=== PATIENT | male | born 1990 | race Caucasian/White ===

== ENCOUNTER → 2016-10-15 | Outpatient (REF) | payer BC ==
[2016-10-15 19:22] LABS: ALBUMIN 4.3 GM/DL (3.2-5.2); ALBUMIN/GLOBULIN RATIO 1.16 (1.00-1.93); ALKALINE PHOSPHATASE 56 U/L (45-117); ALT/SGPT 66 U/L (12-78); ANION GAP 8 MEQ/L (8-16); AST/SGOT 28 U/L (15-37); BILIRUBIN,TOTAL 0.4 MG/DL (0.2-1.0); BLOOD UREA NITROGEN 15 MG/DL (7-18); CALCIUM LEVEL 9.3 MG/DL (8.5-10.1); CARBON DIOXIDE LEVEL 27 MEQ/L (21-32); CHLORIDE LEVEL 106 MEQ/L (98-107); CREATININE FOR GFR 0.88 MG/DL (0.70-1.30); GLOMERULAR FILTRATION RATE > 60.0 (>60); GLUCOSE, FASTING 94 MG/DL (70-105); SODIUM LEVEL 141 MEQ/L (136-145)
[2016-10-15 20:06] LABS: MEAN CORPUSCULAR HEMOGLOBIN 28.5 pg (27.0-33.0); MEAN CORPUSCULAR VOLUME 88.9 fl (80.0-96.0); RED CELL DISTRIBUTION WIDTH 12.6 % (11.5-14.5)
== END ==
LOC: M SFHCLERA 10:34
PROVIDERS: ATTEND Family Medicine
DX: K21.9 Gastro-esophageal reflux disease without esophagitis (principal); F90.0 Attention-deficit hyperactivity disorder, predominantly inattentive type

== ENCOUNTER → 2017-06-15 | Outpatient (REF) | payer BC ==
[2017-06-15 18:31] LABS: BASO % 0.5 % (0.0-1.0); EOS # 0.1 10^3/uL (0.0-0.50); EOS % 1.4 % (0.0-3.0); HEMOGLOBIN 13.6 g/dl (14.0-18.0); IMMATURE GRANULOCYTE % 0.2 % (0-3.0); LYMPH # 1.3 10^3/uL (1.5-6.5); LYMPH % 29.4 % (24.0-44.0); MEAN CORPUSCULAR HEMOGLOBIN 28.2 pg (27.0-33.0); MEAN CORPUSCULAR HGB CONC 32.4 g/dl (32.0-36.5); MEAN CORPUSCULAR VOLUME 87.1 fl (80.0-96.0); MONO # 0.4 10^3/uL (0.0-0.8); MONO % 8.7 % (0.0-5.0); NEUTROPHILS # 2.6 10^3/uL (1.8-7.7); NEUTROPHILS % 59.8 % (36.0-66.0); PLATELET COUNT, AUTOMATED 314 10^3/uL (150-450); RED BLOOD COUNT 4.82 10^6/uL (4.30-6.10); RED CELL DISTRIBUTION WIDTH 12.5 % (11.5-14.5); WHITE BLOOD COUNT 4.4 10^3/uL (4.0-10.0)
[2017-06-15 18:59] LABS: FERRITIN 116 NG/ML (26-388); IRON (FE) 107 UG/DL (65-175); PERCENT SATURATION 30.9 % (19.7-50.0); TOTAL IRON BINDING CAPACITY 346 UG/DL (250-450)
[2017-06-15 18:59] LABS: MAGNESIUM LEVEL 2.1 MG/DL (1.8-2.4)
== END ==
LOC: M SFHCLERA 12:50
DX: D64.9 Anemia, unspecified (principal); K21.0 Gastro-esophageal reflux disease with esophagitis
CPT/HCPCS: 83550

== ENCOUNTER → 2020-03-28 | Outpatient (CLI) | payer BC ==
[~2020-03-28] MED LIST: CHOL400T8 PO; NEXI20CA33 PO; TUMS500C PO; VITA-172 PO; VITMTA PO
[2020-03-28 14:08] LABS: BASO % 0.2 % (0.0-1.0); EOS # 0.1 10^3/uL (0.0-0.5); EOS % 0.5 % (0.0-3.0); HEMATOCRIT 41.4 % (42.0-52.0); HEMOGLOBIN 13.1 g/dl (13.5-17.5); LYMPH # 0.4 10^3/uL (1.5-5.0); LYMPH % 4.7 % (24.0-44.0); MEAN CORPUSCULAR HEMOGLOBIN 27.4 pg (27.0-33.0); MEAN CORPUSCULAR HGB CONC 31.6 g/dl (32.0-36.5); MEAN CORPUSCULAR VOLUME 86.6 fl (80.0-96.0); MONO # 0.7 10^3/uL (0.0-0.8); MONO % 7.3 % (0.0-5.0); NEUTROPHILS # 8.2 10^3/uL (1.5-8.5); NEUTROPHILS % 86.9 % (36.0-66.0); PLATELET COUNT, AUTOMATED 404 10^3/uL (150-450); RED BLOOD COUNT 4.78 10^6/uL (4.30-6.10); WHITE BLOOD COUNT 9.4 10^3/uL (4.0-10.0)
[2020-03-28 14:42] LABS: ALT/SGPT 38 U/L (12-78); BILIRUBIN,TOTAL 0.5 MG/DL (0.2-1.0); BLOOD UREA NITROGEN 19 MG/DL (7-18); CALCIUM LEVEL 9.9 MG/DL (8.5-10.1); CARBON DIOXIDE LEVEL 28 MEQ/L (21-32); CHLORIDE LEVEL 105 MEQ/L (98-107); CREATININE FOR GFR 0.95 MG/DL (0.70-1.30); GLOMERULAR FILTRATION RATE > 60.0 (>60); GLUCOSE, FASTING 116 MG/DL (70-100); LDH LACTATE DEHYDROGENASE 727 U/L (87-241); SODIUM LEVEL 138 MEQ/L (136-145); TOTAL PROTEIN 8.5 GM/DL (6.4-8.2)
[2020-03-30 14:10] LABS: ACETYLCHOLINE RCPTOR BINDING A 0.12 nmol/L (0.00-0.24); HCG SERUM TUMOR MARKER QUANT < 1 mIU/mL (0-3)
== END ==
LOC: M LAB 12:59
PROVIDERS: ATTEND Family Medicine
DX: J98.59 Other diseases of mediastinum, not elsewhere classified (principal)

== ENCOUNTER 2020-03-29 11:02 | Inpatient (IN) | payer BC ==
[~2020-03-29] VITALS: Ht 177.8 cm; Wt 79.5 kg
[2020-03-29] MEDS ORDERED: PERCOCET 5MG/325MG TAB PO PRN ×2 (11:15)
[2020-03-29] MEDS ORDERED: NORCO, ANEXSIA 5/325MG TABLET (HYDROcodone/ACETAMINOPHEN) PO PRN (11:15)
[2020-03-29] MEDS ORDERED: ACETAMINOPHEN TAB 650MG DOSE (2X325MG) PO PRN (11:15)
[2020-03-29] MEDS ORDERED: BISACODYL 10 MG SUPP PR PRN (11:15)
[2020-03-29] MEDS ORDERED: ONDANSETRON 4MG/2ML VIAL IV PRN (11:15)
[2020-03-29] MEDS ORDERED: LEVALBUTEROL 1.25 MG/0.5 ML CONCENTRATE NEB NEB PRN (11:15)
[2020-03-29] MEDS ORDERED: TUMS500C PO (13:33)
[2020-03-29] MEDS ORDERED: CHOL400T8 PO (13:33)
[2020-03-29] MEDS ORDERED: VITMTA PO (13:33)
[2020-03-29] MEDS ORDERED: VITA-172 PO (13:33)
[2020-03-29] MEDS ORDERED: NEXI20CA33 PO ×2 (13:33)
[2020-03-29] MEDS: LEVALBUTEROL 1.25 MG/0.5 ML CONCENTRATE NEB NEB SCH ×2 (14:00→19:58)
[2020-03-29] MEDS ORDERED: SODIUM BICARBONATE 8.4% INJ 50MEQ 50 ML VIAL As Ordered ONE (14:09)
[2020-03-29] MEDS ORDERED: LIDOCAINE 1% MDV 20ML VIAL As Ordered ONE (14:09)
[2020-03-29 14:33] LABS: INR 1.05; PROTHROMBIN TIME 13.9 SECONDS (12.5-14.3)
[2020-03-29] MEDS ORDERED: KETOROLAC 30 MG/ML 1ML VIAL As Ordered ONE (15:10)
[2020-03-29] MEDS: KETOROLAC 30 MG/ML 1ML VIAL IV SCH ×2 (15:12→21:47)
[2020-03-29 15:45] VITALS: BP 158/83
[2020-03-29] MEDS: KCL 20MEQ IN D5/NS 1000ML 1,000 ML IV SCH (16:54)
--- NOTE | 2020-03-29 17:08 | REP ---
INDICATION: meidastinal mass. COMPARISON: None. TECHNIQUE: The procedure is performed by Angi Campos [facility], under the direct supervision of Dr. Bass. The risks and benefits of the procedure were explained to the patient and informed consent was obtained both orally and written. Directly prior to the start of the procedure, a formal timeout was done in the exam room. The right mediastinal mass was localized using CT guidance. Skin was prepped and draped in the usual sterile fashion. Eight ml of 1% lidocaine 10 mg/ml was used as a local anesthetic. FINDINGS: Using CT guidance a 19/20 gauge coaxial needle biopsy system was inserted and advanced into the right mediastinal mass. Ten core biopsy samples were obtained and sent to the lab. CT images obtained directly after the biopsy show no evidence of pneumothorax or hematoma. The patient was then discharged back to the floor. IMPRESSION: CT-guided right mediastinal mass biopsy. <Electronically signed by Angi Campos > 03/29/20 [id number] <Electronically signed by Dwayne Bass > 03/29/20 [id number]
[2020-03-29] MEDS: PANTOPRAZOLE 40MG TAB (PROTONIX) PO SCH (17:37)
[2020-03-29 20:00] VITALS: BP 128/79
[2020-03-29] MEDS: DOCUSATE SODIUM 100MG CAPSULE PO SCH (21:00)
[2020-03-29] MEDS ORDERED: CALCIUM CARBONATE 500 MG CHEW U/D PO PRN (21:00)
[2020-03-29] MEDS: HEPARIN SOD (PORCINE) 5000UNITS/ML 1ML VIAL/SYRINGE SC SCH (21:47)
[2020-03-30] VITALS: BP 135/67
[2020-03-30] MEDS: LEVALBUTEROL 1.25 MG/0.5 ML CONCENTRATE NEB NEB SCH ×2 (02:00→07:27)
[2020-03-30] MEDS: KETOROLAC 30 MG/ML 1ML VIAL IV SCH ×2 (03:00→09:00)
[2020-03-30 04:00] VITALS: BP 136/72
[2020-03-30 06:08] LABS: BASO % 0.7 % (0.0-1.0); EOS # 0.2 10^3/uL (0.0-0.5); EOS % 3.8 % (0.0-3.0); HEMATOCRIT 36.9 % (42.0-52.0); HEMOGLOBIN 11.6 g/dl (13.5-17.5); LYMPH # 0.5 10^3/uL (1.5-5.0); LYMPH % 9.5 % (24.0-44.0); MEAN CORPUSCULAR HEMOGLOBIN 27.4 pg (27.0-33.0); MEAN CORPUSCULAR HGB CONC 31.4 g/dl (32.0-36.5); MEAN CORPUSCULAR VOLUME 87.2 fl (80.0-96.0); MONO # 0.8 10^3/uL (0.0-0.8); NEUTROPHILS % 71.1 % (36.0-66.0); PLATELET COUNT, AUTOMATED 355 10^3/uL (150-450); RED BLOOD COUNT 4.23 10^6/uL (4.30-6.10); WHITE BLOOD COUNT 5.6 10^3/uL (4.0-10.0)
[2020-03-30 06:21] LABS: BLOOD UREA NITROGEN 17 MG/DL (7-18); CALCIUM LEVEL 9.2 MG/DL (8.5-10.1); CARBON DIOXIDE LEVEL 26 MEQ/L (21-32); CHLORIDE LEVEL 108 MEQ/L (98-107); CREATININE FOR GFR 0.94 MG/DL (0.70-1.30); GLOMERULAR FILTRATION RATE > 60.0 (>60); GLUCOSE, FASTING 98 MG/DL (70-100); POTASSIUM SERUM 4.2 MEQ/L (3.5-5.1); SODIUM LEVEL 139 MEQ/L (136-145)
[2020-03-30] MEDS: KCL 20MEQ IN D5/NS 1000ML 1,000 ML IV SCH (06:23)
[2020-03-30 06:32] LABS: ABG BASE EXCESS -0.9 (-2.0-2.0); ABG HCO3 22.5 MEQ/L (22.0-26.0); ABG O2 SATURATION 97.8 % (95.0-99.0); ABG PARTIAL PRESSURE CO2 33.4 mmHg (35.0-45.0); ABG PARTIAL PRESSURE O2 98.3 mmHg (75.0-100.0); ABG STANDARD HCO3 23.7 MEQ/L (22.0-26.0); ABG TOTAL CO2 23.6 MEQ/L (22.0-29.0); ABG pH (ARTERIAL) 7.447 UNITS (7.350-7.450)
[2020-03-30 08:00] VITALS: BP 141/71
--- NOTE | 2020-03-30 08:50 | REP ---
INDICATION: mediastinal mass. COMPARISON: Chest CT dated 03/28/[address]-guided needle biopsy of a large mediastinal mass on 03/29/2020. TECHNIQUE: Upright PA and lateral chest. FINDINGS: The patient's known large mediastinal mass projects to the right and obscures the right paratracheal and right cardiac margin areas. There is no pneumothorax or pleural fluid collection. The lung toth are otherwise clear. Cardiac size is normal. The right hilus is obscured by the mediastinal mass. Left hilus is unremarkable. Skeletal structures unremarkable. IMPRESSION: Large mediastinal mass. No pneumothorax or pleural fluid collection. <Electronically signed by Ananda Whelan > 03/30/20 [id number]
[2020-03-30] MEDS: DOCUSATE SODIUM 100MG CAPSULE PO SCH (08:59)
[2020-03-30] MEDS ORDERED: MOM 30ML SUSPENSION UDC PO SCH (09:00)
[2020-03-30] MEDS: PANTOPRAZOLE 40MG TAB (PROTONIX) PO SCH (09:01)
[2020-03-30] MEDS: HEPARIN SOD (PORCINE) 5000UNITS/ML 1ML VIAL/SYRINGE SC SCH (09:01)
--- NOTE | 2020-03-30 11:49 | HPE ---
HISTORY AND PHYSICAL DATE OF ADMISSION: 03/29/2020 Patient is seen at the request of Dr. Dc Miguel of the primary care service for mediastinal mass accompanied by chest pain. HISTORY OF PRESENT ILLNESS: The patient is a 29-year-old white male whose story starts around last November when he started to develop back pain on the right side. This progressed to pain in the anterior chest. The back pain was originally very sharp and knife-like whereas the anterior chest pain on the right side was more dull and aching. It did not hurt him to take a deep breath. He felt as if he was short of breath secondary to pain but not intrinsically short of breath. He has had a slight cough without sputum production for the last two weeks. He does report off and on, fevers, chills, and sweats, particularly night sweats. He has had shaking chills off and on. There is no dysphagia and he thinks he has maintained his weight although his appetite has decreased over the last few days secondary to anxiety. He has been to Urgent Care a number of times and no imaging has been undertaken. He has noticed over the last three years an increase in the size of his right breast. There has been no hair loss. He denies swelling of his upper extremities or his head. He denies changes in colors of his upper extremities or his head. PAST MEDICAL HISTORY: 1. Prior attention deficit hyperactivity disorder. Previously on medication but no longer. 2. Gastroesophageal reflux disease, on Nexium. PAST SURGICAL HISTORY: None. CURRENT MEDICATIONS: 1. Nexium 20 mg q. day. TRAVEL HISTORY: He has been to the [facility], [place] and to [place], [place] along with travel [place] [facility]. EXPOSURES: He has a cat and now lives with his parents with dogs, Pomeranians. No birds. No prior exposure to tuberculosis. 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 There has been no travel in the past six months secondary to the COVID pandemic. HABITS: Used to smoke maybe less than a half a pack of cigarettes when he was in college for two years. He used to smoke occasional marijuana also in college. He drinks about three to six beers a week. FAMILY HISTORY: Mother has hemangiomas of her liver. REVIEW OF SYSTEMS: Constitutional: See HPI. Eyes: Status post Lasik surgery without diplopia or amaurosis fugax, without prior jaundice. Nose: Has occasional epistaxis when blowing his nose. Mouth: He has his own teeth. Respiratory: See HPI. Cardiac: See HPI. Has noted tachycardias and palpitations over the last two weeks. No orthopnea. No paroxysmal nocturnal dyspnea. No peripheral edema. No anginal chest pain. GI: With some nausea, no vomiting over the last couple of days. Without constipation, had a bout of diarrhea yesterday. No melena. No hematochezia or hematemesis. No abdominal pain. : Without dysuria or hematuria, without testicular masses. Hematological: Without prolonged bleeding times. Endocrine without diabetes, without thyroid disease. Neurologic: Without paresthesias or paralyses or prior seizures. PHYSICAL EXAMINATION: VITAL SIGNS: In the office, his blood pressure of 140/70, a pulse of 108 with a regular rate and rhythm. He was 98% saturated on room air with a respiratory rate of 16 without use of accessory muscles. Temperature is pending, will be taken in the hospital upon admission. GENERAL: Well-developed, well-nourished white male, quite anxious. HEENT: Head is normocephalic. Eyes: Pupils equal, round and reactive to light. Extraocular motions intact. Sclera nonicteric. Nose without deformity. Mouth shows the mucous membranes to be pink and moist. Lips and gums with no lesions. Teeth are in good repair. There is no thrush. NECK: Neck is supple. There is no jugular venous distention. No subcutaneous emphysema. Trachea is midline. There is no lymphadenopathy or thyromegaly. He has 2+ carotids without bruits. LUNGS: Normal vesicular sounds without wheezes, rhonchi or rales. Percussion is full to the diaphragm. CARDIAC: Tachycardia without murmurs, clicks, gallops or rubs. I cannot feel his PMI. S1 and S2 are normal. BREASTS: His right breast is swollen but nontender secondary to what is thought to be gynecomastia. ABDOMEN: Soft and nontender. Bowel sounds are positive. There is no hepatomegaly. No CVA tenderness. There are no abdominal masses. EXTREMITIES: No pretibial edema. No calf tenderness. No differential swelling of the upper extremities. SKIN: Warm, dry and perfused without cyanosis or mottling including the nailbeds and knees. : Testicular exam showed no testicular masses. NEUROLOGIC: Cranial nerves II-XII intact. Gross motor intact, gross sensory intact. Gait is also intact. PSYCHIATRIC: He was awake and alert, oriented x3 with appropriate mood and affect, and conversational. INVESTIGATIONS: His white count yesterday was 9.4 with a hemoglobin and hematocrit of 13.1 and 41.4 respectively. Platelet count was 404,000. Differential shows 86% neutrophils, 4% lymphocytes, 7% monocytes. There were no immature forms or toxic granulations. Chemistries showed normal electrolytes with BUN and creatinine of 19 and 0.95, glucose of 116, calcium 9.9. LDH is 727 with an albumin of 4.0. His AFP tumor marker is 7.1 which is within normal limits. HCG is pending. His mono screen was negative. His chest CT done at [facility] on 03/28/2020 shows a large mediastinal mass compressing the vena cava but not occluding it. There is also some compression of the right main pulmonary artery. It is a heterogenous mass and measures at least 14 cm x 8.6 cm and extends down the side of the right atrium outside the pericardium past the hilum and extends up to the base of the neck and even slightly into the neck. There are subcutaneous veins that are filling abnormally particularly on the right side over the anterior chest wall. There is gynecomastia on the right side. The mass itself is heterogenous showing what is probably a necrotic center. The adrenals have a normal configuration. There is a lucency which fills with contrast in the right posterior lobe of the liver which is thought to represent a hemangioma. Pancreas had a normal configuration. I do not see periaortic lymphadenopathy. IMPRESSION: 1. Large anterior mediastinal mass possibly: a. Lymphoma. b. Thymoma. c. Germ cell tumor, testicular. PLAN/DISCUSSION: It is imperative that we establish a diagnosis immediately. I have arranged for him to be seen by Radiology and undergo a CT guided biopsy today with the processing of the tissue tomorrow. While his subcutaneous veins are opacified on the right on the anterior chest on CT, he does not have clinical superior vena cava syndrome at this point in time. I do not see those veins on physical examination. Considering that he has a fever, sweats and night sweats, this sounds like it is going to be a B-cell lymphoma. It certainly can always represent a thymoma. As soon as we establish a diagnosis, we can plan for further treatment. He had expressed a wish to go to [facility] and I have indicated to him that if this turns out to be a thymoma I will definitely refer them to [facility]. I do not think this is going to be and we could certainly and prudently start chemotherapy here. I will also involve radiation therapy. I think that we have a limited window luxury of time to establish this diagnosis before having to undertake emergent radiation therapy. Will have him seen by Oncology most likely tomorrow.
--- NOTE | 2020-03-30 11:49 | DSES ---
DISCHARGE SUMMARY DATE OF ADMISSION: 03/29/2020 DATE OF DISCHARGE: 03/30/2020 DISCHARGE DIAGNOSES: 1. 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 2. Impending superior vena cava (SVC) syndrome. 3. Gastroesophageal reflux disease. HOSPITAL COURSE: The patient is a 29-year-old white male whose story starts around November when he started to experience back pain. This progressed to anterior right-sided chest pain. He had been seen by an urgent care at least twice and was told that it was a muscle sprain and to do stretching exercises. He was finally seen by family physician, Dr. Miguel, in [facility] who obtained a chest x-ray that showed a very large mediastinal mass. Threshold EPA's symptomatology included fevers, chills, and night sweats. He has maintained his weight. He does not complain of shortness of breath, and he had not noticed that his head or arms had swelling. His chest CT confirmed a very large anterior mediastinal mass, which was beginning to flatten and pancaking the superior vena cava at its junction with the right atrium. He underwent a needle biopsy yesterday in radiology and preliminary results show this to be most likely a lymphoma. Flow cytometry is being undertaken as are special markers. DISCHARGE DISPOSITION: I made arrangements for him to see Dr. Medley at the [facility] this morning at 10:30. While we cannot start treatment at this point in time as we do not have a definitive diagnosis, at least the [facility] will be able to give him a broad outline of possibility. The family is also talking about going to [facility] and those arrangements can be made between the [facility] and [facility]. I will not need to see him in follow-up. DISCHARGE MEDICATIONS: He is being discharged on his home medications, which include: - Nexium 20 mg once daily - ibuprofen or Aleve as needed for pain - vitamin B12 at 500 mg once daily - cholecalciferol 10 mg chew 800 units once daily - multivitamins one once daily - Tums 200 mg chew p.r.n. indigestion I have indicated to him that should he become short of breath or should his hands or head start to swell, he is to immediately give us a call and we may have to do emergent radiation therapy for impending superior vena cava (SVC) syndrome.
== END 2020-03-30 10:09 | disposition home or self-care (01) | DRG 691 ==
LOC: M PCU 13:08
PROVIDERS: ADMIT Thoracic Surgery (Cardiothoracic Vascular Surgery); ATTEND Thoracic Surgery (Cardiothoracic Vascular Surgery)
PROC: 0WBC3ZX Excision of Mediastinum, Percutaneous Approach, Diagnostic (ICD-10-PCS; principal; 2020-03-29 12:00)
DX: C83.32 Diffuse large B-cell lymphoma, intrathoracic lymph nodes (principal); I87.1 Compression of vein; K21.9 Gastro-esophageal reflux disease without esophagitis; Z87.891 Personal history of nicotine dependence; Z79.899 Other long term (current) drug therapy; Z20.828 Contact with and (suspected) exposure to other viral communicable diseases

== ENCOUNTER → 2020-03-30 | Outpatient (CLI) | payer BC ==
--- NOTE | 2020-03-30 14:58 | RADONC.CN ---
Radiation Oncology Hx/Consult Radiation Oncology Consult Date of Service: Mar 30, 2020 Pt Identifier Jhony Pandey is a 29 year old male with an unremarkable past medical history who presents today for urgent consultation for a 4 month history of mid-thoracic back pain, periodic fevers and occasional night sweats. He underwent a chest x- ray which revealed a large mediastinal mass. Chest CT on 03/28/20 showed an approximately 14 x 9 x 13 cm heterogenously enhancing anterior mediastinal mass, displacing posteriorly, but not fully occluding or invading the SVC. CT abdomen and pelvis revealed no infradiaphragmatic lesion of oncologic concern. The mediastinal mass was biopsied percutaneously yesterday, 03/29/20 and pathology is pending. He is here for a discussion of the workup to date and next steps. Diagnosis/Treatment History Oncologic History As described above Recent labs of note: 03/30/20 Cr 0.96 Hgb 12 LD 567 AFP 7.1 03/29/20 Pathology pending Interval History He notes ongoing anterior chest pain and back pain. The pain in the back started in November. It is stabbing in quality. The pain in the chest is dull and not associated with respirations. He has been having periodic fevers and chills over this time period. Does also endorse 1-2 episodes of drenching night sweats as well. His appetite and weight are preserved. He does feel fatigue. He does not note pain with alcoholic beverage consumption. He feels his voice is of normal quality. He has no complaints of swelling in the hands or face or abdominal pain. He does not have any MCMILLAN or SOB. 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 He is engaged. He has no personal oncologic history. His mom asked about the presence of hemangioma on his CT abdomen (he does have one in segment 6). Past Medical History: GERD Past Surgical History: None Family History: No family hisotry of cancer Social History: Former 1/2 ppd smoker for 1-2 years Drinks 4 beers per week Allergies / Meds Allergies: Coded Allergies: No Known Allergies (Verified Allergy, Unknown, 03/29/20) Home Meds Reported Medications Cyanocobalamin (Vitamin B-12) (Vitamin B-12) 500 Mcg Tablet, 500 MCG PO DAILY, TAB 03/29/20 Cholecalciferol (Vitamin D3) (Vitamin D3) 10 Mcg Tab.chew, 800 UNITS PO DAILY 03/29/20 Multivitamins (Thera M Plus Tablet) 1 Each Tablet, 1 TAB PO DAILY, TAB 03/29/20 Calcium Carbonate (Tums) 200 Mg Tab.chew, 1000 MG PO PRN for INDIGESTION, CHW 03/29/20 Esomeprazole Magnesium (Nexium 24Hr) 20 Mg Capsule.dr, 10 MG PO QHS, CAP 03/29/20 Review of Systems Constitutional: Reports: Chills, Fever, Night Sweats, Fatigue, Normal appetite; Denies: Weight Loss Eyes: Denies: Pain, Vision change HEENT: Denies: Head Aches Skin: Denies: Rash Pulmonary: Denies: Dyspnea, Cough Cardiovascular: Reports: Chest Pain; Denies: Palpitations, Edema, Lt Headedness Breast: Reports: New Breast Lumps / Masses (Right breast lump present for past year) Gastrointestinal: Denies: Nausea, Vomiting, Abdominal Pain, Diarrhea Genitourinary: Denies: Dysuria, Frequency, Incontinence Hematologic: Denies: Bruising, Petecchia, Enlarged Lymph Nodes Musculoskeletal: Reports: Back pain; Denies: Neck pain, Leg pain Neurological: Denies: Weakness, Numbness, Incoordination Psych: Reports: Mood Normal; Denies: Memory Issues, Thoughts of Self Harm Vital Signs Ht 69" Wt 175 lb T 96.2 P 97 RR 18 BP 132/80 O2 98% General Exam: Positive: Alert, Cooperative, No Acute Distress Eye Exam: Positive: PERRLA, EOMI ENT EXAM: Positive: Atraumatic, Pharynx Normal (No tonsilar masses, normal appearing soft palate and oral mucosa), Other ENT (No facial plethora, or edema. Phonation normal. No neck vein distension/JVD) Neck Exam: Positive: Supple; Negative: Thyromegaly, Lymphadenopathy Chest Exam: Positive: Clear to auscultation, Normal air movement; Negative: Rales, Rhonchi, Wheezing, Diminished Heart Exam: Positive: Rate Normal, Regular Rhythm Breast Exam: Negative: Symmetric Bilaterally (There is a palpable breast bud/gynecomastia on the right>left), Skin Changes Abdomen Exam: Positive: Normal bowel sounds, Soft; Negative: Tenderness, Hepatospenomegaly Extremity Exam: Negative: Edema Skin Exam: Positive: Nl turgor and temperature Neuro Exam: Positive: Normal Gait, Normal Speech, Normal Tone, Cranial Nerves 3-12 NL Psych Exam: Positive: Mental status NL Other Physical Findings Lymphatic exam: Waldeyer's ring WNL on oral exam. No cervical, supra/infraclavicular, axillary, epitrochlear, abdominal, inguinal or popliteal adenopathy palpated. Diagnostic and Laboratory Diagnostic Review Radiologic images, relevant labs and pathology reports were personally reviewed and discussed with Mr. Pandey. Assessment and Plan Impression Mr. Pandey is a 29 year old male with unremarkable past medical history who presents today for urgent consultation for a 4 month history of mid-thoracic back pain, periodic fevers and occasional night sweats. He underwent a chest x- ray which revealed a large mediastinal mass. Chest CT on 03/28/20 showed an approximately 14 x 9 x 13 cm heterogenously enhancing anterior mediastinal mass, displacing posteriorly, but not fully occluding or invading the SVC. CT abdomen and pelvis revealed no infradiaphragmatic lesion of oncologic concern. The mediastinal mass was biopsied percutaneously yesterday, 03/29/20 and pathology is pending. He is here for a discussion of the workup to date and next steps. Stage Pending Performance Status ECOG 0 Plan We had an extensive discussion with Mr. Pandey regarding the diagnosis at hand and available therapeutic options. The leading differential considerations in this case are 1) Hodgkin lymphoma, most likely 2) Mediastinal NHL, such as PMLBCL, GZL, etc 3) Thymic carcinoma/thymoma 4) Germ cell tumor Based on his age, symptomatology, imaging and laboratory workup to date, it is most likely that he has a Hodgkin lymphoma. If it is indeed limited to the anterior mediastinal mass, then he would be stage IB early unfavorable per the GHSG criteria given the bulk (14 x 9 x 13 cm). Pathology from his biopsy is pending. I will follow this up. I do not see an ESR ordered, I will request that this be added on to his labs as it is prognostic in HL. We do not have dedicated neck imaging as of yet, but I note no obvious adenopathy on my exam today. PET-CT will best resolve the question of stage. Dr. Morales has already ordered PET-CT, cardiac assessments, BM biopsy and mediport placement in anticipation of chemotherapy. I explained that at this time I see no indication for urgent RT. He is not having symptoms of SVC syndrome and the vessel is patent but compressed, as evidenced by the superficial venous collateralization I see on his CT chest. Rather, he should be diagnosed/staged and move on to the most appropriate initial therapy (most likely ABVD). In the event he has an early stage lymphoma consolidative ISRT would be advised and would follow chemotherapy if he is treated per standard protocols. We discussed the next steps in diagnosis and treatment tentatively, for each of the most common items on the differential, especially HL. They were appreciative of this. They intent to pursue second opinion at [facility], which I enthusiastically support (especially if he is proven to have a rare malignancy). They have something set up for this Thursday. I explained that I understand their eagerness to obtain a plan, but that it would be of higher yield for them to obtain an expert opinion with a tissue diagnosis and stage established, so that a treatment recommendation can be given based on solid data and speculation, and also so that his eligibility for any clinical trials can be established. They seemed to appreciate this idea. I reviewed the red-flag symptoms of SVC syndrome that would require emergent management (presenting to the ED), hoarseness, syncope, dysphagia, dyspnea and facial or UE swelling. I will follow up his results and assist in coordinating his care as much as I am able. We instructed the patient that if there were any questions,concerns or changes in clinical status in the interim to contact us. Recommendations Complete staging: Follow up pathology PET-CT BM biopsy Add on ESR (prognostic for HL) Will contact patient with results as they come in No role for emergent RT at this juncture Support second opinion at [facility] once diagnostics complete THOMAS ORANTES MD Mar 30, 2020 14:52
--- NOTE | 2020-04-05 10:04 | RADENCPD ---
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 I called and spoke with Ezra (father). They intend to pursue an opinion at [facility] with Dr. Mullins of the lymphoma service. They request records be sent to [phone] FLACO Nina (new patient coordinator). I will facilitate this. I will also attempt to arrange for his PET-CT next week once our authorization staff returns from the holiday break. THOMAS ORANTES MD Apr 05, 2020 10:04
== END ==
LOC: M ONCR 13:27
PROVIDERS: ATTEND General Practice
DX: R22.2 Localized swelling, mass and lump, trunk (principal)

== ENCOUNTER → 2020-04-09 | Outpatient (CLI) | payer BC ==
--- NOTE | 2020-04-11 12:19 | ECHO ---
DATE OF PROCEDURE: 04/09/2020 Age: 29 Gender: Male Height: 177 cm Weight: 77 kg REFERRING PHYSICIAN: Chip Morales MD INDICATION: Chemotherapy MEASUREMENTS: IVS 0.8 cm LV 5.2 cm LVPW 0.7 cm LA 2.8 cm Aorta 3.1 cm RV 3.3 cm IVC 1.6 cm Mitral E wave velocity 97 cm/s Mitral A wave 40 cm/s E prime septal 13.7 cm/s E prime lateral 16.0 cm/s FINDINGS: This study is of acceptable technical quality. Underlying sinus rhythm. Left ventricle has normal size and overall preserved LV systolic function, I estimate LVEF around 55% to 60%. No segmental wall motion abnormalities are appreciated. Right ventricle also appears to be normal size and systolic function. Both atria appear normal. The aortic valve is tricuspid and has normal mobility. Mitral, tricuspid, and pulmonic valves are also reasonably well seen and appear normal. There is a small noncompressive pericardial effusion. Inferior vena cava is normal size. Aortic root, aortic arch, and abdominal aorta appear normal. Doppler interrogation reveals competent aortic and mitral valve. There is trace tricuspid insufficiency, but quality of TR jet was not sufficient to adequately estimate pulmonary artery pressure. Mitral inflow pattern and tissue Doppler imaging of the mitral annulus revealed normal diastolic function. CONDITION: * Study is of acceptable technical quality, underlying sinus rhythm. * Normal LV size with preserved LV systolic function, estimated LVEF around 55% to 60%. Normal diastolic function. Global longitudinal strain was negative 16.8%, which is borderline normal reading. * No significant valvular disease. * Normal central venous pressure. * Small noncompressive pericardial effusion. MTDD
== END ==
LOC: M CARPUL 08:03
PROVIDERS: ATTEND Internal Medicine Hematology & Oncology
DX: J98.59 Other diseases of mediastinum, not elsewhere classified (principal)

== ENCOUNTER → 2020-04-27 | Outpatient (CLI) | payer BC ==
[2020-04-27 13:18] LABS: HEMATOCRIT 40.2 % (42.0-52.0); HEMOGLOBIN 12.3 g/dl (13.5-17.5); MEAN CORPUSCULAR HGB CONC 30.6 g/dl (32.0-36.5); MEAN CORPUSCULAR VOLUME 88.2 fl (80.0-96.0); PLATELET COUNT, AUTOMATED 468 10^3/uL (150-450); RED BLOOD COUNT 4.56 10^6/uL (4.30-6.10); WHITE BLOOD COUNT 24.7 10^3/uL (4.0-10.0)
[2020-04-27 13:56] LABS: ALBUMIN 4.1 GM/DL (3.2-5.2); ALT/SGPT 76 U/L (12-78); BILIRUBIN,TOTAL 0.2 MG/DL (0.2-1.0); BLOOD UREA NITROGEN 13 MG/DL (7-18); CALCIUM LEVEL 9.5 MG/DL (8.5-10.1); CARBON DIOXIDE LEVEL 27 MEQ/L (21-32); CHLORIDE LEVEL 103 MEQ/L (98-107); CREATININE FOR GFR 0.88 MG/DL (0.70-1.30); GLOMERULAR FILTRATION RATE > 60.0 (>60); GLUCOSE, FASTING 100 MG/DL (70-100); POTASSIUM SERUM 4.6 MEQ/L (3.5-5.1); SODIUM LEVEL 137 MEQ/L (136-145); TOTAL PROTEIN 7.7 GM/DL (6.4-8.2)
[2020-04-27 14:47] LABS: LYMPHOCYTES 17 % (16-44); METAMYELOCYTES 1 % (0-0); MONOCYTES 6 % (0-5); MYELOCYTES 9 % (0-0); NEUTROPHILS 51 % (28-66); PROMYELOCYTES 8 % (0-0)
[2020-04-27 14:49] LABS: HYPOCHROMASIA 1+; PLATELET ESTIMATE INCREASED (NORMAL); POLYCHROMASIA 1+
== END ==
LOC: M LAB 12:15
PROVIDERS: ATTEND Internal Medicine
DX: C85.22 Mediastinal (thymic) large B-cell lymphoma, intrathoracic lymph nodes (principal); D70.1 Agranulocytosis secondary to cancer chemotherapy; T45.1X5A Adverse effect of antineoplastic and immunosuppressive drugs, initial encounter

== ENCOUNTER → 2020-05-10 | Outpatient (CLI) | payer BC ==
[2020-05-10 14:48] LABS: HEMATOCRIT 34.1 % (42.0-52.0); HEMOGLOBIN 10.7 g/dl (13.5-17.5); MEAN CORPUSCULAR HEMOGLOBIN 26.9 pg (27.0-33.0); MEAN CORPUSCULAR HGB CONC 31.4 g/dl (32.0-36.5); MEAN CORPUSCULAR VOLUME 85.7 fl (80.0-96.0); PLATELET COUNT, AUTOMATED 280 10^3/uL (150-450); RED BLOOD COUNT 3.98 10^6/uL (4.30-6.10); WHITE BLOOD COUNT 21.6 10^3/uL (4.0-10.0)
[2020-05-10 15:20] LABS: LYMPHOCYTES 1 % (16-44); NEUTROPHILS 98 % (28-66)
[2020-05-10 15:21] LABS: ALBUMIN 3.9 GM/DL (3.2-5.2); ALT/SGPT 293 U/L (12-78); BILIRUBIN,TOTAL 0.5 MG/DL (0.2-1.0); BLOOD UREA NITROGEN 15 MG/DL (7-18); CALCIUM LEVEL 9.3 MG/DL (8.5-10.1); CARBON DIOXIDE LEVEL 32 MEQ/L (21-32); CHLORIDE LEVEL 102 MEQ/L (98-107); CREATININE FOR GFR 0.72 MG/DL (0.70-1.30); GLOMERULAR FILTRATION RATE > 60.0 (>60); GLUCOSE, FASTING 86 MG/DL (70-100); PLATELET ESTIMATE NORMAL (NORMAL); POTASSIUM SERUM 3.4 MEQ/L (3.5-5.1); SODIUM LEVEL 139 MEQ/L (136-145); TOTAL PROTEIN 7.4 GM/DL (6.4-8.2)
== END ==
LOC: M LAB 14:03
PROVIDERS: ATTEND Internal Medicine
DX: C85.22 Mediastinal (thymic) large B-cell lymphoma, intrathoracic lymph nodes (principal); T45.1X5A Adverse effect of antineoplastic and immunosuppressive drugs, initial encounter; D70.1 Agranulocytosis secondary to cancer chemotherapy

== ENCOUNTER → 2020-05-18 | Outpatient (CLI) | payer BC ==
[2020-05-18 14:42] LABS: HEMATOCRIT 35.2 % (42.0-52.0); HEMOGLOBIN 10.8 g/dl (13.5-17.5); MEAN CORPUSCULAR HEMOGLOBIN 26.9 pg (27.0-33.0); MEAN CORPUSCULAR HGB CONC 30.7 g/dl (32.0-36.5); MEAN CORPUSCULAR VOLUME 87.8 fl (80.0-96.0); PLATELET COUNT, AUTOMATED 162 10^3/uL (150-450); RED BLOOD COUNT 4.01 10^6/uL (4.30-6.10); WHITE BLOOD COUNT 17.3 10^3/uL (4.0-10.0)
[2020-05-18 15:03] LABS: ANISOCYTOSIS 1+; LYMPHOCYTES 7 % (16-44); METAMYELOCYTES 3 % (0-0); MONOCYTES 2 % (0-5); MYELOCYTES 3 % (0-0); NEUTROPHILS 78 % (28-66)
[2020-05-18 15:04] LABS: HYPOCHROMASIA 1+; PLATELET ESTIMATE NORMAL (NORMAL); POLYCHROMASIA 1+
[2020-05-18 15:38] LABS: ALT/SGPT 133 U/L (12-78); BILIRUBIN,TOTAL 0.2 MG/DL (0.2-1.0); BLOOD UREA NITROGEN 10 MG/DL (7-18); CALCIUM LEVEL 9.1 MG/DL (8.5-10.1); CARBON DIOXIDE LEVEL 29 MEQ/L (21-32); CHLORIDE LEVEL 104 MEQ/L (98-107); CREATININE FOR GFR 0.78 MG/DL (0.70-1.30); GLOMERULAR FILTRATION RATE > 60.0 (>60); GLUCOSE, FASTING 96 MG/DL (70-100); POTASSIUM SERUM 3.8 MEQ/L (3.5-5.1); SODIUM LEVEL 139 MEQ/L (136-145); TOTAL PROTEIN 7.3 GM/DL (6.4-8.2)
== END ==
LOC: M LAB 14:07
PROVIDERS: ATTEND Internal Medicine
DX: C85.22 Mediastinal (thymic) large B-cell lymphoma, intrathoracic lymph nodes (principal); D70.1 Agranulocytosis secondary to cancer chemotherapy; T45.1X5A Adverse effect of antineoplastic and immunosuppressive drugs, initial encounter

== ENCOUNTER → 2020-05-31 | Outpatient (CLI) | payer BC ==
[2020-05-31 13:38] LABS: HEMATOCRIT 32.6 % (42.0-52.0); HEMOGLOBIN 10.1 g/dl (13.5-17.5); MEAN CORPUSCULAR HEMOGLOBIN 27.2 pg (27.0-33.0); MEAN CORPUSCULAR VOLUME 87.6 fl (80.0-96.0); PLATELET COUNT, AUTOMATED 272 10^3/uL (150-450); RED BLOOD COUNT 3.72 10^6/uL (4.30-6.10); WHITE BLOOD COUNT 23.8 10^3/uL (4.0-10.0)
[2020-05-31 14:04] LABS: ALBUMIN 3.8 GM/DL (3.2-5.2); ALT/SGPT 108 U/L (12-78); BILIRUBIN,TOTAL 0.6 MG/DL (0.2-1.0); BLOOD UREA NITROGEN 12 MG/DL (7-18); CALCIUM LEVEL 9.3 MG/DL (8.5-10.1); CARBON DIOXIDE LEVEL 29 MEQ/L (21-32); CHLORIDE LEVEL 102 MEQ/L (98-107); CREATININE FOR GFR 0.82 MG/DL (0.70-1.30); GLOMERULAR FILTRATION RATE > 60.0 (>60); GLUCOSE, FASTING 145 MG/DL (70-100); POTASSIUM SERUM 3.4 MEQ/L (3.5-5.1); SODIUM LEVEL 138 MEQ/L (136-145); TOTAL PROTEIN 7.4 GM/DL (6.4-8.2)
[2020-05-31 14:14] LABS: ANISOCYTOSIS 2+; BASOPHILS 1 % (0-1); HYPOCHROMASIA 1+; LYMPHOCYTES 2 % (16-44); NEUTROPHILS 75 % (28-66)
[2020-05-31 14:15] LABS: PLATELET CLUMPS SMALL AMT; PLATELET ESTIMATE NORMAL (NORMAL)
== END ==
LOC: M LAB 13:02
PROVIDERS: ATTEND Internal Medicine
DX: C85.22 Mediastinal (thymic) large B-cell lymphoma, intrathoracic lymph nodes (principal)

== ENCOUNTER → 2020-06-04 | Outpatient (CLI) | payer BC ==
[2020-06-04 16:14] LABS: HEMATOCRIT 30.5 % (42.0-52.0); HEMOGLOBIN 9.6 g/dl (13.5-17.5); MEAN CORPUSCULAR HEMOGLOBIN 27.6 pg (27.0-33.0); MEAN CORPUSCULAR HGB CONC 31.5 g/dl (32.0-36.5); MEAN CORPUSCULAR VOLUME 87.6 fl (80.0-96.0); PLATELET COUNT, AUTOMATED 177 10^3/uL (150-450); RED BLOOD COUNT 3.48 10^6/uL (4.30-6.10); WHITE BLOOD COUNT 6.4 10^3/uL (4.0-10.0)
[2020-06-04 16:40] LABS: ALBUMIN 3.9 GM/DL (3.2-5.2); ALT/SGPT 89 U/L (12-78); BILIRUBIN,TOTAL 0.2 MG/DL (0.2-1.0); BLOOD UREA NITROGEN 7 MG/DL (7-18); CALCIUM LEVEL 8.8 MG/DL (8.5-10.1); CARBON DIOXIDE LEVEL 29 MEQ/L (21-32); CHLORIDE LEVEL 100 MEQ/L (98-107); CREATININE FOR GFR 0.89 MG/DL (0.70-1.30); GLOMERULAR FILTRATION RATE > 60.0 (>60); GLUCOSE, FASTING 96 MG/DL (70-100); POTASSIUM SERUM 3.9 MEQ/L (3.5-5.1); SODIUM LEVEL 137 MEQ/L (136-145); TOTAL PROTEIN 7.1 GM/DL (6.4-8.2)
[2020-06-04 18:43] LABS: ATYPICAL LYMPH 3 % (0-5); BASOPHILS 2 % (0-1); BLAST CELLS 1 % (0-0); EOSINOPHILS 2 % (0-3); LYMPHOCYTES 9 % (16-44); METAMYELOCYTES 5 % (0-0); MONOCYTES 8 % (0-5); MYELOCYTES 6 % (0-0); NEUTROPHILS 47 % (28-66)
[2020-06-04 18:46] LABS: ANISOCYTOSIS 1+; POLYCHROMASIA 1+
[2020-06-04 18:47] LABS: DOHLE BODIES 1+
[2020-06-04 18:48] LABS: TEAR DROP CELLS 1+
[2020-06-04 18:49] LABS: HYPOCHROMASIA 1+; PLATELET ESTIMATE NORMAL (NORMAL)
[2020-06-04 18:50] LABS: PROMYELOCYTES 1 % (0-0)
== END ==
LOC: M LAB 15:32
PROVIDERS: ATTEND Internal Medicine
DX: C85.22 Mediastinal (thymic) large B-cell lymphoma, intrathoracic lymph nodes (principal); D70.1 Agranulocytosis secondary to cancer chemotherapy; T45.1X5A Adverse effect of antineoplastic and immunosuppressive drugs, initial encounter

== ENCOUNTER → 2020-06-07 | Outpatient (CLI) | payer BC ==
[2020-06-07 16:14] LABS: HEMATOCRIT 33.7 % (42.0-52.0); HEMOGLOBIN 10.3 g/dl (13.5-17.5); MEAN CORPUSCULAR HEMOGLOBIN 27.2 pg (27.0-33.0); MEAN CORPUSCULAR HGB CONC 30.6 g/dl (32.0-36.5); MEAN CORPUSCULAR VOLUME 89.2 fl (80.0-96.0); PLATELET COUNT, AUTOMATED 244 10^3/uL (150-450); RED BLOOD COUNT 3.78 10^6/uL (4.30-6.10); WHITE BLOOD COUNT 17.2 10^3/uL (4.0-10.0)
[2020-06-07 16:42] LABS: ALBUMIN 3.9 GM/DL (3.2-5.2); ALT/SGPT 72 U/L (12-78); BILIRUBIN,TOTAL 0.2 MG/DL (0.2-1.0); BLOOD UREA NITROGEN 12 MG/DL (7-18); CALCIUM LEVEL 8.8 MG/DL (8.5-10.1); CARBON DIOXIDE LEVEL 31 MEQ/L (21-32); CHLORIDE LEVEL 104 MEQ/L (98-107); CREATININE FOR GFR 0.89 MG/DL (0.70-1.30); GLOMERULAR FILTRATION RATE > 60.0 (>60); GLUCOSE, FASTING 93 MG/DL (70-100); POTASSIUM SERUM 4.3 MEQ/L (3.5-5.1); SODIUM LEVEL 140 MEQ/L (136-145); TOTAL PROTEIN 7.2 GM/DL (6.4-8.2)
[2020-06-07 20:05] LABS: ATYPICAL LYMPH 7 % (0-5); BASOPHILS 1 % (0-1); BLAST CELLS 3 % (0-0); EOSINOPHILS 1 % (0-3); LYMPHOCYTES 6 % (16-44); METAMYELOCYTES 12 % (0-0); MONOCYTES 3 % (0-5); MYELOCYTES 1 % (0-0); NEUTROPHILS 33 % (28-66)
[2020-06-07 20:06] LABS: ANISOCYTOSIS 1+; OVALOCYTES 1+; POIKILOCYTOSIS 1+; POLYCHROMASIA 1+
[2020-06-07 20:08] LABS: PLATELET ESTIMATE NORMAL (NORMAL)
== END ==
LOC: M LAB 15:34
PROVIDERS: ATTEND Internal Medicine
DX: C85.22 Mediastinal (thymic) large B-cell lymphoma, intrathoracic lymph nodes (principal); D70.1 Agranulocytosis secondary to cancer chemotherapy; T45.1X5A Adverse effect of antineoplastic and immunosuppressive drugs, initial encounter

== ENCOUNTER → 2020-06-21 | Outpatient (CLI) | payer BC ==
[2020-06-21 14:41] LABS: HEMOGLOBIN 9.8 g/dl (13.5-17.5); MEAN CORPUSCULAR HEMOGLOBIN 28.1 pg (27.0-33.0); MEAN CORPUSCULAR HGB CONC 31.6 g/dl (32.0-36.5); MEAN CORPUSCULAR VOLUME 88.8 fl (80.0-96.0); PLATELET COUNT, AUTOMATED 316 10^3/uL (150-450); RED BLOOD COUNT 3.49 10^6/uL (4.30-6.10)
[2020-06-21 14:46] LABS: WHITE BLOOD COUNT 40.8 10^3/uL (4.0-10.0)
[2020-06-21 15:11] LABS: ALT/SGPT 43 U/L (12-78); BILIRUBIN,TOTAL 0.4 MG/DL (0.2-1.0); BLOOD UREA NITROGEN 16 MG/DL (7-18); CALCIUM LEVEL 9.2 MG/DL (8.5-10.1); CARBON DIOXIDE LEVEL 32 MEQ/L (21-32); CHLORIDE LEVEL 101 MEQ/L (98-107); CREATININE FOR GFR 0.76 MG/DL (0.70-1.30); GLOMERULAR FILTRATION RATE > 60.0 (>60); GLUCOSE, FASTING 124 MG/DL (70-100); POTASSIUM SERUM 3.8 MEQ/L (3.5-5.1); SODIUM LEVEL 138 MEQ/L (136-145); TOTAL PROTEIN 6.9 GM/DL (6.4-8.2)
[2020-06-21 15:28] LABS: LYMPHOCYTES 2 % (16-44); METAMYELOCYTES 2 % (0-0); NEUTROPHILS 74 % (28-66); PLATELET ESTIMATE NORMAL (NORMAL)
[2020-06-21 15:29] LABS: ANISOCYTOSIS 2+
[2020-06-21 15:30] LABS: TEAR DROP CELLS 1+
[2020-06-22 10:53] LABS: MAGNESIUM LEVEL 2.4 MG/DL (1.8-2.4)
== END ==
LOC: M LAB 14:01
PROVIDERS: ATTEND Internal Medicine
DX: C85.22 Mediastinal (thymic) large B-cell lymphoma, intrathoracic lymph nodes (principal)

== ENCOUNTER → 2020-06-25 | Outpatient (CLI) | payer BC ==
[2020-06-25 16:56] LABS: HEMATOCRIT 29.1 % (42.0-52.0); HEMOGLOBIN 9.1 g/dl (13.5-17.5); MEAN CORPUSCULAR HEMOGLOBIN 27.7 pg (27.0-33.0); MEAN CORPUSCULAR HGB CONC 31.3 g/dl (32.0-36.5); MEAN CORPUSCULAR VOLUME 88.7 fl (80.0-96.0); PLATELET COUNT, AUTOMATED 183 10^3/uL (150-450); RED BLOOD COUNT 3.28 10^6/uL (4.30-6.10); WHITE BLOOD COUNT 3.5 10^3/uL (4.0-10.0)
[2020-06-25 17:29] LABS: ALBUMIN 3.8 GM/DL (3.2-5.2); ALT/SGPT 45 U/L (12-78); BILIRUBIN,TOTAL 0.2 MG/DL (0.2-1.0); BLOOD UREA NITROGEN 10 MG/DL (7-18); CALCIUM LEVEL 8.9 MG/DL (8.5-10.1); CARBON DIOXIDE LEVEL 31 MEQ/L (21-32); CHLORIDE LEVEL 104 MEQ/L (98-107); GLOMERULAR FILTRATION RATE > 60.0 (>60); GLUCOSE, FASTING 117 MG/DL (70-100); MAGNESIUM LEVEL 2.1 MG/DL (1.8-2.4); POTASSIUM SERUM 3.8 MEQ/L (3.5-5.1); SODIUM LEVEL 139 MEQ/L (136-145); TOTAL PROTEIN 6.9 GM/DL (6.4-8.2)
[2020-06-25 18:01] LABS: ATYPICAL LYMPH 1 % (0-5); BASOPHILS 1 % (0-1); EOSINOPHILS 2 % (0-3); LYMPHOCYTES 27 % (16-44); MONOCYTES 12 % (0-5); NEUTROPHILS 52 % (28-66)
[2020-06-25 18:02] LABS: TEAR DROP CELLS 3+
[2020-06-25 18:03] LABS: OVALOCYTES 1+
[2020-06-25 18:04] LABS: SCHISTOCYTES 1+
[2020-06-25 18:06] LABS: PLATELET ESTIMATE NORMAL (NORMAL); POLYCHROMASIA 1+
== END ==
LOC: M LAB 16:27
PROVIDERS: ATTEND Internal Medicine
DX: C85.22 Mediastinal (thymic) large B-cell lymphoma, intrathoracic lymph nodes (principal); D70.1 Agranulocytosis secondary to cancer chemotherapy; T45.1X5A Adverse effect of antineoplastic and immunosuppressive drugs, initial encounter

== ENCOUNTER → 2020-06-27 | Outpatient (CLI) | payer BC ==
[2020-06-27 14:54] LABS: HEMATOCRIT 29.8 % (42.0-52.0); HEMOGLOBIN 9.3 g/dl (13.5-17.5); MEAN CORPUSCULAR HEMOGLOBIN 27.6 pg (27.0-33.0); MEAN CORPUSCULAR HGB CONC 31.2 g/dl (32.0-36.5); MEAN CORPUSCULAR VOLUME 88.4 fl (80.0-96.0); PLATELET COUNT, AUTOMATED 161 10^3/uL (150-450); RED BLOOD COUNT 3.37 10^6/uL (4.30-6.10); WHITE BLOOD COUNT 4.9 10^3/uL (4.0-10.0)
[2020-06-27 15:18] LABS: ALBUMIN 3.8 GM/DL (3.2-5.2); ALT/SGPT 61 U/L (12-78); BILIRUBIN,TOTAL 0.3 MG/DL (0.2-1.0); BLOOD UREA NITROGEN 8 MG/DL (7-18); CARBON DIOXIDE LEVEL 29 MEQ/L (21-32); CHLORIDE LEVEL 102 MEQ/L (98-107); CREATININE FOR GFR 0.76 MG/DL (0.70-1.30); GLOMERULAR FILTRATION RATE > 60.0 (>60); GLUCOSE, FASTING 88 MG/DL (70-100); MAGNESIUM LEVEL 2.3 MG/DL (1.8-2.4); POTASSIUM SERUM 3.9 MEQ/L (3.5-5.1); SODIUM LEVEL 135 MEQ/L (136-145); TOTAL PROTEIN 7.2 GM/DL (6.4-8.2)
[2020-06-27 15:53] LABS: ATYPICAL LYMPH 1 % (0-5); BASOPHILS 1 % (0-1); LYMPHOCYTES 19 % (16-44); METAMYELOCYTES 5 % (0-0); MONOCYTES 13 % (0-5); MYELOCYTES 2 % (0-0); NEUTROPHILS 52 % (28-66)
[2020-06-27 15:55] LABS: ANISOCYTOSIS 2+; HYPOCHROMASIA 1+; PLATELET ESTIMATE NORMAL (NORMAL); POIKILOCYTOSIS 1+; POLYCHROMASIA 1+; TOXIC GRANULATION 1+
== END ==
LOC: M LAB 13:56
PROVIDERS: ATTEND Internal Medicine
DX: C85.22 Mediastinal (thymic) large B-cell lymphoma, intrathoracic lymph nodes (principal); D70.9 Neutropenia, unspecified; T45.1X5A Adverse effect of antineoplastic and immunosuppressive drugs, initial encounter; X58.XXXA Exposure to other specified factors, initial encounter; Y92.89 Other specified places as the place of occurrence of the external cause

== ENCOUNTER → 2020-07-02 | Outpatient (CLI) | payer BC ==
[2020-07-02 18:06] LABS: HEMOGLOBIN 9.9 g/dl (13.5-17.5); MEAN CORPUSCULAR HEMOGLOBIN 27.4 pg (27.0-33.0); MEAN CORPUSCULAR HGB CONC 30.9 g/dl (32.0-36.5); MEAN CORPUSCULAR VOLUME 88.6 fl (80.0-96.0); PLATELET COUNT, AUTOMATED 405 10^3/uL (150-450); RED BLOOD COUNT 3.61 10^6/uL (4.30-6.10); WHITE BLOOD COUNT 10.8 10^3/uL (4.0-10.0)
[2020-07-02 18:39] LABS: ALBUMIN 3.8 GM/DL (3.2-5.2); ALT/SGPT 45 U/L (12-78); BILIRUBIN,TOTAL 0.3 MG/DL (0.2-1.0); BLOOD UREA NITROGEN 13 MG/DL (7-18); CALCIUM LEVEL 8.9 MG/DL (8.5-10.1); CARBON DIOXIDE LEVEL 28 MEQ/L (21-32); CHLORIDE LEVEL 105 MEQ/L (98-107); GLOMERULAR FILTRATION RATE > 60.0 (>60); GLUCOSE, FASTING 93 MG/DL (70-100); MAGNESIUM LEVEL 2.1 MG/DL (1.8-2.4); POTASSIUM SERUM 4.4 MEQ/L (3.5-5.1); SODIUM LEVEL 138 MEQ/L (136-145); TOTAL PROTEIN 7.1 GM/DL (6.4-8.2)
[2020-07-02 19:33] LABS: ANISOCYTOSIS 1+; BASOPHILS 1 % (0-1); LYMPHOCYTES 9 % (16-44); METAMYELOCYTES 1 % (0-0); MONOCYTES 5 % (0-5); NEUTROPHILS 79 % (28-66)
[2020-07-02 19:34] LABS: PLATELET ESTIMATE NORMAL (NORMAL); POIKILOCYTOSIS 1+
[2020-07-02 19:39] LABS: TEAR DROP CELLS 1+
[2020-07-02 19:41] LABS: HYPOCHROMASIA 1+; TOXIC GRANULATION 1+
== END ==
LOC: M LAB 17:17
PROVIDERS: ATTEND Internal Medicine
DX: C85.22 Mediastinal (thymic) large B-cell lymphoma, intrathoracic lymph nodes (principal); T45.1X5A Adverse effect of antineoplastic and immunosuppressive drugs, initial encounter

== ENCOUNTER → 2020-07-12 | Outpatient (CLI) | payer BC ==
[2020-07-12 14:50] LABS: HEMATOCRIT 28.3 % (42.0-52.0); HEMOGLOBIN 8.8 g/dl (13.5-17.5); MEAN CORPUSCULAR HEMOGLOBIN 28.1 pg (27.0-33.0); MEAN CORPUSCULAR HGB CONC 31.1 g/dl (32.0-36.5); MEAN CORPUSCULAR VOLUME 90.4 fl (80.0-96.0); PLATELET COUNT, AUTOMATED 351 10^3/uL (150-450); RED BLOOD COUNT 3.13 10^6/uL (4.30-6.10)
[2020-07-12 15:00] LABS: WHITE BLOOD COUNT 60.6 10^3/uL (4.0-10.0)
[2020-07-12 15:11] LABS: ALBUMIN 3.6 GM/DL (3.2-5.2); ALT/SGPT 134 U/L (12-78); BILIRUBIN,TOTAL 0.3 MG/DL (0.2-1.0); BLOOD UREA NITROGEN 12 MG/DL (7-18); CALCIUM LEVEL 8.8 MG/DL (8.5-10.1); CARBON DIOXIDE LEVEL 31 MEQ/L (21-32); CHLORIDE LEVEL 102 MEQ/L (98-107); CREATININE FOR GFR 0.62 MG/DL (0.70-1.30); GLOMERULAR FILTRATION RATE > 60.0 (>60); GLUCOSE, FASTING 97 MG/DL (70-100); MAGNESIUM LEVEL 1.8 MG/DL (1.8-2.4); SODIUM LEVEL 139 MEQ/L (136-145); TOTAL PROTEIN 6.6 GM/DL (6.4-8.2)
[2020-07-12 16:02] LABS: LYMPHOCYTES 3 % (16-44); NEUTROPHILS 92 % (28-66)
[2020-07-12 16:03] LABS: PLATELET ESTIMATE NORMAL (NORMAL)
[2020-07-12 16:04] LABS: ANISOCYTOSIS 2+; HYPOCHROMASIA 2+
== END ==
LOC: M LAB 14:08
PROVIDERS: ATTEND Internal Medicine
DX: C85.22 Mediastinal (thymic) large B-cell lymphoma, intrathoracic lymph nodes (principal); D70.1 Agranulocytosis secondary to cancer chemotherapy; T45.1X5A Adverse effect of antineoplastic and immunosuppressive drugs, initial encounter

== ENCOUNTER → 2020-07-16 | Outpatient (CLI) | payer BC ==
[2020-07-16 14:39] LABS: HEMATOCRIT 27.4 % (42.0-52.0); HEMOGLOBIN 8.4 g/dl (13.5-17.5); MEAN CORPUSCULAR HEMOGLOBIN 27.3 pg (27.0-33.0); MEAN CORPUSCULAR HGB CONC 30.7 g/dl (32.0-36.5); PLATELET COUNT, AUTOMATED 197 10^3/uL (150-450); RED BLOOD COUNT 3.08 10^6/uL (4.30-6.10); WHITE BLOOD COUNT 2.9 10^3/uL (4.0-10.0)
[2020-07-16 15:03] LABS: ANISOCYTOSIS 2+; ATYPICAL LYMPH 2 % (0-5); BASOPHILS 2 % (0-1); HYPOCHROMASIA 1+; LYMPHOCYTES 21 % (16-44); MONOCYTES 9 % (0-5); NEUTROPHILS 40 % (28-66); PLATELET ESTIMATE NORMAL (NORMAL)
[2020-07-16 15:04] LABS: MICROCYTOSIS 2+; TEAR DROP CELLS 2+
[2020-07-16 15:08] LABS: ALBUMIN 4.2 GM/DL (3.2-5.2); ALT/SGPT 124 U/L (12-78); BILIRUBIN,TOTAL 0.1 MG/DL (0.2-1.0); BLOOD UREA NITROGEN 12 MG/DL (7-18); CALCIUM LEVEL 9.3 MG/DL (8.5-10.1); CARBON DIOXIDE LEVEL 31 MEQ/L (21-32); CHLORIDE LEVEL 103 MEQ/L (98-107); CREATININE FOR GFR 0.62 MG/DL (0.70-1.30); GLOMERULAR FILTRATION RATE > 60.0 (>60); GLUCOSE, FASTING 123 MG/DL (70-100); POTASSIUM SERUM 3.5 MEQ/L (3.5-5.1); SODIUM LEVEL 140 MEQ/L (136-145); TOTAL PROTEIN 7.3 GM/DL (6.4-8.2)
== END ==
LOC: M LAB 14:10
PROVIDERS: ATTEND Internal Medicine
DX: C85.22 Mediastinal (thymic) large B-cell lymphoma, intrathoracic lymph nodes (principal); D70.1 Agranulocytosis secondary to cancer chemotherapy; T45.1X5A Adverse effect of antineoplastic and immunosuppressive drugs, initial encounter

== ENCOUNTER → 2020-07-20 | Outpatient (CLI) | payer BC ==
[2020-07-20 14:43] LABS: HEMATOCRIT 30.6 % (42.0-52.0); HEMOGLOBIN 9.3 g/dl (13.5-17.5); MEAN CORPUSCULAR HEMOGLOBIN 28.1 pg (27.0-33.0); MEAN CORPUSCULAR HGB CONC 30.4 g/dl (32.0-36.5); MEAN CORPUSCULAR VOLUME 92.4 fl (80.0-96.0); PLATELET COUNT, AUTOMATED 214 10^3/uL (150-450); RED BLOOD COUNT 3.31 10^6/uL (4.30-6.10)
[2020-07-20 14:46] LABS: WHITE BLOOD COUNT 20.2 10^3/uL (4.0-10.0)
[2020-07-20 15:07] LABS: LYMPHOCYTES 10 % (16-44); METAMYELOCYTES 9 % (0-0); MONOCYTES 9 % (0-5); MYELOCYTES 9 % (0-0); NEUTROPHILS 49 % (28-66); PROMYELOCYTES 1 % (0-0)
[2020-07-20 15:08] LABS: ANISOCYTOSIS 1+; HYPOCHROMASIA 1+; PLATELET ESTIMATE NORMAL (NORMAL); TEAR DROP CELLS 1+
[2020-07-20 15:27] LABS: ALT/SGPT 84 U/L (12-78); BILIRUBIN,TOTAL 0.2 MG/DL (0.2-1.0); BLOOD UREA NITROGEN 10 MG/DL (7-18); CALCIUM LEVEL 9.2 MG/DL (8.5-10.1); CARBON DIOXIDE LEVEL 31 MEQ/L (21-32); CHLORIDE LEVEL 106 MEQ/L (98-107); CREATININE FOR GFR 0.72 MG/DL (0.70-1.30); GLOMERULAR FILTRATION RATE > 60.0 (>60); GLUCOSE, FASTING 126 MG/DL (70-100); MAGNESIUM LEVEL 2.2 MG/DL (1.8-2.4); POTASSIUM SERUM 3.9 MEQ/L (3.5-5.1); SODIUM LEVEL 141 MEQ/L (136-145); TOTAL PROTEIN 7.3 GM/DL (6.4-8.2)
== END ==
LOC: M LAB 14:20
PROVIDERS: ATTEND Internal Medicine
DX: C85.22 Mediastinal (thymic) large B-cell lymphoma, intrathoracic lymph nodes (principal)

== ENCOUNTER → 2020-08-02 | Outpatient (CLI) | payer BC ==
[2020-08-02 14:37] LABS: HEMOGLOBIN 9.5 g/dl (13.5-17.5); MEAN CORPUSCULAR HEMOGLOBIN 28.6 pg (27.0-33.0); MEAN CORPUSCULAR HGB CONC 30.6 g/dl (32.0-36.5); MEAN CORPUSCULAR VOLUME 93.4 fl (80.0-96.0); PLATELET COUNT, AUTOMATED 361 10^3/uL (150-450); RED BLOOD COUNT 3.32 10^6/uL (4.30-6.10)
[2020-08-02 14:38] LABS: WHITE BLOOD COUNT 36.2 10^3/uL (4.0-10.0)
[2020-08-02 15:02] LABS: ALT/SGPT 117 U/L (12-78); BILIRUBIN,TOTAL 0.4 MG/DL (0.2-1.0); BLOOD UREA NITROGEN 17 MG/DL (7-18); CALCIUM LEVEL 9.8 MG/DL (8.5-10.1); CARBON DIOXIDE LEVEL 31 MEQ/L (21-32); CHLORIDE LEVEL 102 MEQ/L (98-107); CREATININE FOR GFR 0.67 MG/DL (0.70-1.30); GLOMERULAR FILTRATION RATE > 60.0 (>60); GLUCOSE, FASTING 113 MG/DL (70-100); MAGNESIUM LEVEL 2.3 MG/DL (1.8-2.4); POTASSIUM SERUM 3.4 MEQ/L (3.5-5.1); SODIUM LEVEL 137 MEQ/L (136-145); TOTAL PROTEIN 7.6 GM/DL (6.4-8.2)
[2020-08-02 15:06] LABS: ATYPICAL LYMPH 2 % (0-5); LYMPHOCYTES 2 % (16-44); NEUTROPHILS 81 % (28-66)
[2020-08-02 15:07] LABS: ANISOCYTOSIS 1+
[2020-08-02 15:08] LABS: MICROCYTOSIS 1+; PLATELET ESTIMATE NORMAL (NORMAL); POIKILOCYTOSIS 1+; TEAR DROP CELLS 1+
== END ==
LOC: M LAB 13:57
PROVIDERS: ATTEND Internal Medicine
DX: C85.22 Mediastinal (thymic) large B-cell lymphoma, intrathoracic lymph nodes (principal)

== ENCOUNTER → 2020-08-06 | Outpatient (CLI) | payer BC ==
[2020-08-06 14:35] LABS: BASO % 2.2 % (0.0-1.0); EOS % 1.1 % (0.0-3.0); HEMATOCRIT 27.2 % (42.0-52.0); HEMOGLOBIN 8.5 g/dl (13.5-17.5); LYMPH # 0.3 10^3/uL (1.5-5.0); LYMPH % 30.8 % (24.0-44.0); MEAN CORPUSCULAR HGB CONC 31.3 g/dl (32.0-36.5); MEAN CORPUSCULAR VOLUME 92.8 fl (80.0-96.0); MONO # 0.1 10^3/uL (0.0-0.8); MONO % 14.3 % (2.0-8.0); NEUTROPHILS % 50.5 % (36.0-66.0); PLATELET COUNT, AUTOMATED 188 10^3/uL (150-450); RED BLOOD COUNT 2.93 10^6/uL (4.30-6.10)
[2020-08-06 14:43] LABS: NEUTROPHILS # 0.5 10^3/uL (1.5-8.5); WHITE BLOOD COUNT 0.9 10^3/uL (4.0-10.0)
[2020-08-06 15:07] LABS: ALT/SGPT 61 U/L (12-78); BILIRUBIN,TOTAL 0.3 MG/DL (0.2-1.0); BLOOD UREA NITROGEN 10 MG/DL (7-18); CALCIUM LEVEL 9.2 MG/DL (8.5-10.1); CARBON DIOXIDE LEVEL 28 MEQ/L (21-32); CHLORIDE LEVEL 105 MEQ/L (98-107); CREATININE FOR GFR 0.69 MG/DL (0.70-1.30); GLOMERULAR FILTRATION RATE > 60.0 (>60); GLUCOSE, FASTING 116 MG/DL (70-100); POTASSIUM SERUM 3.4 MEQ/L (3.5-5.1); SODIUM LEVEL 140 MEQ/L (136-145); TOTAL PROTEIN 7.3 GM/DL (6.4-8.2)
== END ==
LOC: M LAB 14:04
PROVIDERS: ATTEND Internal Medicine
DX: C85.22 Mediastinal (thymic) large B-cell lymphoma, intrathoracic lymph nodes (principal)

== ENCOUNTER → 2020-08-13 | Outpatient (CLI) | payer BC ==
[2020-08-13 14:59] LABS: HEMATOCRIT 29.4 % (42.0-52.0); HEMOGLOBIN 8.9 g/dl (13.5-17.5); MEAN CORPUSCULAR HEMOGLOBIN 28.9 pg (27.0-33.0); MEAN CORPUSCULAR HGB CONC 30.3 g/dl (32.0-36.5); MEAN CORPUSCULAR VOLUME 95.5 fl (80.0-96.0); PLATELET COUNT, AUTOMATED 350 10^3/uL (150-450); RED BLOOD COUNT 3.08 10^6/uL (4.30-6.10); WHITE BLOOD COUNT 12.7 10^3/uL (4.0-10.0)
[2020-08-13 15:23] LABS: ALBUMIN 3.7 GM/DL (3.2-5.2); ALT/SGPT 40 U/L (12-78); BILIRUBIN,TOTAL 0.2 MG/DL (0.2-1.0); BLOOD UREA NITROGEN 7 MG/DL (7-18); CALCIUM LEVEL 9.4 MG/DL (8.5-10.1); CARBON DIOXIDE LEVEL 30 MEQ/L (21-32); CHLORIDE LEVEL 109 MEQ/L (98-107); GLOMERULAR FILTRATION RATE > 60.0 (>60); GLUCOSE, FASTING 100 MG/DL (70-100); MAGNESIUM LEVEL 2.2 MG/DL (1.8-2.4); POTASSIUM SERUM 4.1 MEQ/L (3.5-5.1); SODIUM LEVEL 142 MEQ/L (136-145); TOTAL PROTEIN 6.9 GM/DL (6.4-8.2)
[2020-08-13 17:10] LABS: ATYPICAL LYMPH 3 % (0-5); LYMPHOCYTES 9 % (16-44); METAMYELOCYTES 7 % (0-0); MONOCYTES 8 % (0-5); NEUTROPHILS 54 % (28-66)
[2020-08-13 17:11] LABS: ANISOCYTOSIS 2+; OVALOCYTES 1+; POLYCHROMASIA 2+; TEAR DROP CELLS 1+
[2020-08-13 17:12] LABS: HYPOCHROMASIA 1+; PLATELET ESTIMATE NORMAL (NORMAL)
== END ==
LOC: M LAB 14:15
PROVIDERS: ATTEND Internal Medicine
DX: C85.22 Mediastinal (thymic) large B-cell lymphoma, intrathoracic lymph nodes (principal)

== ENCOUNTER → 2020-08-16 | Outpatient (CLI) | payer BC ==
[2020-08-16 14:18] LABS: HEMATOCRIT 32.2 % (42.0-52.0); HEMOGLOBIN 9.8 g/dl (13.5-17.5); MEAN CORPUSCULAR HEMOGLOBIN 28.8 pg (27.0-33.0); MEAN CORPUSCULAR HGB CONC 30.4 g/dl (32.0-36.5); MEAN CORPUSCULAR VOLUME 94.7 fl (80.0-96.0); PLATELET COUNT, AUTOMATED 561 10^3/uL (150-450); WHITE BLOOD COUNT 9.4 10^3/uL (4.0-10.0)
[2020-08-16 14:53] LABS: ALT/SGPT 36 U/L (12-78); BILIRUBIN,TOTAL 0.2 MG/DL (0.2-1.0); BLOOD UREA NITROGEN 10 MG/DL (7-18); CALCIUM LEVEL 9.6 MG/DL (8.5-10.1); CARBON DIOXIDE LEVEL 26 MEQ/L (21-32); CHLORIDE LEVEL 108 MEQ/L (98-107); CREATININE FOR GFR 0.72 MG/DL (0.70-1.30); GLOMERULAR FILTRATION RATE > 60.0 (>60); GLUCOSE, FASTING 123 MG/DL (70-100); POTASSIUM SERUM 4.3 MEQ/L (3.5-5.1); SODIUM LEVEL 139 MEQ/L (136-145); TOTAL PROTEIN 7.2 GM/DL (6.4-8.2)
[2020-08-16 15:29] LABS: ANISOCYTOSIS 2+; BASOPHILS 1 % (0-1); LYMPHOCYTES 3 % (16-44); METAMYELOCYTES 1 % (0-0); MONOCYTES 2 % (0-5); MYELOCYTES 4 % (0-0); NEUTROPHILS 83 % (28-66); PLATELET ESTIMATE INCREASED (NORMAL)
[2020-08-16 15:30] LABS: HYPOCHROMASIA 1+; TEAR DROP CELLS 2+
[2020-08-16 15:31] LABS: POIKILOCYTOSIS 1+; SCHISTOCYTES 1+
== END ==
LOC: M LAB 13:40
PROVIDERS: ATTEND Internal Medicine
DX: C85.22 Mediastinal (thymic) large B-cell lymphoma, intrathoracic lymph nodes (principal); D50.9 Iron deficiency anemia, unspecified; T45.1X5A Adverse effect of antineoplastic and immunosuppressive drugs, initial encounter